=== PATIENT | male | born 2000 | race American Indian/Alaskan Native ===

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

== ENCOUNTER 2018-03-04 20:50 | Emergency (ER) | payer OTHER ==
[2018-03-04 20:50] VITALS: BMI 29.0
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
[2018-03-04 22:24] VITALS: BP 120/82; PULSE 68; RESP 17; TEMP 98.2; O2SAT 100
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
--- NOTE | 2018-03-05 08:48 | RAD ---
PROCEDURE: Cervical Spine Radiographs. HISTORY: Pain. COMPARISON: None. FINDINGS: BONES: Reversal of the anatomic lordosis with kyphosis. Degree: Mild DISC SPACES: Normal. SOFT TISSUES: Normal. No prevertebral soft tissue swelling. OTHER FINDINGS: No visible neuroforaminal abnormalities IMPRESSION: No acute findings related to/accounting for the clinical presentation. Mild kyphosis.
== END 2018-03-04 22:24 | disposition home or self-care (01) ==
LOC: ED 20:50
DX: S13.4XXA Sprain of ligaments of cervical spine, initial encounter (principal); S39.012A Strain of muscle, fascia and tendon of lower back, initial encounter; V49.49XA Driver injured in collision with other motor vehicles in traffic accident, initial encounter; Y92.410 Unspecified street and highway as the place of occurrence of the external cause

== ENCOUNTER 2018-03-22 13:15 | Emergency (ER) | payer OTHER ==
[2018-03-22 13:23] VITALS: BMI 29.7
[2018-03-22 13:28] VITALS: RESP 18
--- NOTE | 2018-03-22 14:10 | ED PDOC ---
Arrival/HPI - General Historian: Patient <Al Martinez - Last Filed: 03/22/18 14:04> - History of Present Illness Time/Duration: 24 hours Activities at Onset: Rest Context: Home <Otis Villalobos - Last Filed: 03/22/18 17:07> - General Chief Complaint: GI Problem Time Seen by Provider: 03/22/18 13:48 - History of Present Illness Narrative History of Present Illness (Text): Patient is a 17 year old male with no significant past medical history who presents to the emergency department for evaluation and treatment of a 1 day history of nausea, vomiting, and diarrhea. Patient believes symptoms were caused by eating at a new restaurant. States he experienced these symptoms several hours after ingesting food from aforementioned restaurant. Admits to experiencing approximately 12 bouts of nonbloody, nonbilious emesis yesterday and several bouts of nonbloody watery diarrhea. All symptoms have resolved since onset. Admits to tolerating diet. Denies recent travel and sick contacts at home. Requests note for work. PMD: Mirela Pike 03/22/18 14:20 (Al Martinez) Past Medical History - Provider Review Nursing Documentation Reviewed: Yes - Travel History Have you recently traveled outside [place] w/in the past 3 mons?: No - Past History Past History: Non-Contributing - Infectious Disease Hx of Infectious Diseases: None - Tetanus Immunization Tetanus Immunization: Unknown - Past Medical History Past Medical History: Non-Contributing - Cardiac Hx Cardiac Disorders: No - Pulmonary Hx Respiratory Disorders: No - Neurological Hx Neurological Disorder: No - HEENT Hx HEENT Disorder: No - Renal Hx Renal Disorder: No - Endocrine/Metabolic Hx Endocrine Disorders: No - Hematological/Oncological Hx Blood Disorders: No - Integumentary Hx Dermatological Disorder: No - Musculoskeletal/Rheumatological Hx Musculoskeletal Disorders: No Other/Comment: L hip sx - Gastrointestinal Hx Gastrointestinal Disorders: No - Genitourinary/Gynecological Hx Genitourinary Disorders: No - Psychiatric Hx Psychophysiologic Disorder: No Hx Substance Use: No - Surgical History Hx Orthopedic Surgery: Yes (hip surgery) Other/Comment: femur epiphysis - Anesthesia Hx Anesthesia: Yes Hx Anesthesia Reactions: No <Al Martinez - Last Filed: 03/22/18 14:04> - Provider Review Nursing Documentation Reviewed: Yes <Otis Villalobos - Last Filed: 03/22/18 17:07> Family/Social History - Physician Review Nursing Documentation Reviewed: Yes Family/Social History: Unknown Family HX Smoking Status: Never Smoked Hx Alcohol Use: No Hx Substance Use: No <Al Martinez - Last Filed: 03/22/18 14:04> - Physician Review Nursing Documentation Reviewed: Yes Hx Substance Use Treatment: No <Otis Villalobos - Last Filed: 03/22/18 17:07> Allergies/Home Meds <Al Martinez - Last Filed: 03/22/18 14:04> <Otis Villalobos - Last Filed: 03/22/18 17:07> Allergies/Adverse Reactions: Allergies No Known Allergies Allergy (Verified 10/30/17 12:44) Home Medications: Home Meds Medication Instructions Recorded Confirmed No Known Home Med 03/22/18 03/22/18 Review of Systems - Physician Review All systems were reviewed & negative as marked: Yes - Review of Systems Constitutional: Normal Eyes: Normal ENT: Normal Respiratory: Normal Cardiovascular: Normal Gastrointestinal: Normal Genitourinary Male: Normal Musculoskeletal: Normal Skin: Normal Neurological: Normal Endocrine: Normal Hemo/Lymphatic: Normal Psychiatric: Normal <Al Martinez Last Filed: 03/22/18 14:04> - Review of Systems Gastrointestinal: Abdominal Pain, Diarrhea, Nausea, Vomiting. absent: Normal <Otis Villalobos Last Filed: 03/22/18 17:07> Physical Exam Temperature: Afebrile Blood Pressure: Normal Pulse: Regular Respiratory Rate: Normal Appearance: Positive for: Well-Appearing Pain Distress: None Mental Status: Positive for: Alert and Oriented X 3 - Systems Exam Head: Present: Atraumatic, Normocephalic Pupils: Present: PERRL Extroacular Muscles: Present: EOMI Conjunctiva: Present: Normal Mouth: Present: Moist Mucous Membranes Respiratory/Chest: Present: Clear to Auscultation, Good Air Exchange. No: Respiratory Distress, Accessory Muscle Use Cardiovascular: Present: Regular Rate and Rhythm, Normal S1, S2. No: Murmurs Abdomen: Present: Normal Bowel Sounds. No: Tenderness, Distention, Peritoneal Signs, Rebound, Guarding, McBurney's Point Tender Upper Extremity: Present: Normal Inspection Lower Extremity: Present: Normal Inspection Neurological: Present: GCS=15, CN II-XII Intact, Speech Normal, Motor Func Grossly Intact, Normal Sensory Function Skin: Present: Warm, Dry, Normal Color Psychiatric: Present: Alert, Oriented x 3, Normal Insight, Normal Concentration <Al Martinez - Last Filed: 03/22/18 14:04> <Otis Villalobos - Last Filed: 03/22/18 17:07> Vital Signs Temp Pulse Resp BP Pulse Ox 03/22/18 14:40 98.0 F 65 18 111/58 L 99 03/22/18 14:10 98.0 F 65 18 111/58 L 97 03/22/18 13:26 98.5 F 62 18 109/47 L 97 Medical Decision Making <Al Martinez - Last Filed: 03/22/18 14:04> Re-evaluation Time: 14:15 Reassessment Condition: Improved <Otis Villalobos - Last Filed: 03/22/18 17:07> ED Course and Treatment: Assessment and Plan: Patient is a 17 year old male with no significant past medical history who presents to the emergency department for evaluation and treatment of a 1 day history of nausea, vomiting, and diarrhea. Nausea, Vomiting- resolved, provoking event possibly food related Diarrhea- resolved, provoking event possibly food related - symptoms have resolved - 12 point ROS negative - physical examination benign 03/22/18 14:13 (Al Martinez) Patient Seen With Resident: In agreement with resident note which contains more details about the patient. Patient was seen and evaluated with resident. Came up with plan and treatment together. I performed the hx and physical exam of the patient and discussed their mgt with the RESIDENT. I reviewed the RESIDENT's NOTE and agree with the assessment and plan of care. pt is well appearing pt is comfortable pt denied nausea/vomiting pt is made aware of his medical results pt is encouraged [place] diet and continue hydration pt will f/u as directed pt will be discharged home (Otis Villalobos) Disposition/Present on Arrival - Present on Arrival Any Indicators Present on Arrival: No History of DVT/PE: No History of Uncontrolled Diabetes: No Urinary Catheter: No History of Decub. Ulcer: No History Surgical Site Infection Following: None - Disposition Have Diagnosis and Disposition been Completed?: Yes Disposition Time: 14:17 Patient Plan: Discharge <Al Martinez - Last Filed: 03/22/18 14:04> <Otis Villalobos - Last Filed: 03/22/18 17:07> - Disposition Diagnosis: Nausea & vomiting, Diarrhea Disposition: HOME/ ROUTINE Condition: GOOD Discharge Instructions (ExitCare): Diarrhea in Adolescents and Adults, Viral Gastroenteritis Print Language: OMANI Additional Instructions: Raleigh Suarez, thank you for letting us take care of you today. Your provider was Dr. Villalobos. You were treated for nausea/vomiting/diarrhea. The emergency medical care you received today was directed at your acute symptoms. If you were prescribed any medication, please fill it and take as directed. It may take several days for your symptoms to resolve. Return to the Emergency Department if your symptoms worsen, do not improve, or if you have any other problems. Please contact your doctor or call one of the physicians/clinics you have been referred to that are listed on the Patient Visit Information form that is included in your discharge packet. Bring any paperwork you were given at discharge with you along with any medications you are taking to your follow up visit. Our treatment cannot replace ongoing medical care by a primary care provider (PCP) outside of the emergency department. Thank you for allowing the [facility] team to be part of your care today. You are stable for discharge from emergency room to home. Please follow up with your primary care physician. Referrals: Mirela Troy MD [Primary Care Provider] - Follow up with primary Forms: [employer] (Maori)
[2018-03-22 14:29] VITALS: BP 111/58; PULSE 65; TEMP 98
[2018-03-22 14:52] VITALS: O2SAT 99
== END 2018-03-22 14:40 | disposition home or self-care (01) ==
LOC: ED 13:15
DX: R11.2 Nausea with vomiting, unspecified (principal); R19.7 Diarrhea, unspecified

== ENCOUNTER 2018-05-03 17:22 | Emergency (ER) | payer MEDICAID, OTHER ==
[2018-05-03 17:22] VITALS: BMI 29.7
[2018-05-03 17:31] VITALS: BP 131/72; PULSE 74; RESP 18; TEMP 98.6; O2SAT 98
--- NOTE | 2018-05-03 17:50 | ED PDOC ---
Arrival/HPI - General Chief Complaint: Male Genitourinary Time Seen by Provider: 05/03/18 17:46 Historian: Patient - History of Present Illness Narrative History of Present Illness (Text): 05/03/18 17:47 Patient is a 17 year old male who presents to the Emergency department complaining of a painful sore on his penis. Patient reports that he first noticed the sore 2 days ago. He also admits to noticing a cut at that time, but doesn't know the cause of it. He reports that he recently changed his condom to a magnum condom. Patient denies any discharge or bumps. Patient denies any systemic complaints such as fever, malaise, or headache. PMD: Dr.Mona Troy Time/Duration: < week (2 days ago) Symptom Onset: Sudden Symptom Course: Unchanged Context: Home Past Medical History - Provider Review Nursing Documentation Reviewed: Yes - Past History Past History: Non-Contributing - Infectious Disease Hx of Infectious Diseases: None - Tetanus Immunization Tetanus Immunization: Unknown - Past Medical History Past Medical History: Non-Contributing - Cardiac Hx Cardiac Disorders: No - Pulmonary Hx Respiratory Disorders: No - Neurological Hx Neurological Disorder: No - HEENT Hx HEENT Disorder: No - Renal Hx Renal Disorder: No - Endocrine/Metabolic Hx Endocrine Disorders: No - Hematological/Oncological Hx Blood Disorders: No - Integumentary Hx Dermatological Disorder: No - Musculoskeletal/Rheumatological Hx Musculoskeletal Disorders: No Other/Comment: L hip sx - Gastrointestinal Hx Gastrointestinal Disorders: No - Genitourinary/Gynecological Hx Genitourinary Disorders: No - Psychiatric Hx Psychophysiologic Disorder: No Hx Substance Use: No - Surgical History Hx Orthopedic Surgery: Yes (hip surgery) Other/Comment: femur epiphysis - Anesthesia Hx Anesthesia: Yes Hx Anesthesia Reactions: No Family/Social History - Physician Review Nursing Documentation Reviewed: Yes Family/Social History: No Known Family HX Smoking Status: Never Smoked Hx Alcohol Use: No Hx Substance Use: No Hx Substance Use Treatment: No Allergies/Home Meds Allergies/Adverse Reactions: Allergies No Known Allergies Allergy (Verified 10/30/17 12:44) Review of Systems - Physician Review All systems were reviewed & negative as marked: Yes - Review of Systems Constitutional: absent: Fatigue, Fevers Neurological: absent: Headache Physical Exam - Physical Exam Narrative Physical Exam (Text): 05/03/18 17:59 Gen: VS reviewed, alert, well developed, well nourished, nontoxic, mild distress. ENT: normal pharynx. Eye: EOMI, PERRL. Neck: no JVD, supple, no adenopathy. CV: regular rate, regular rhythm, no rubs, no murmur, no gallops, S1, S2, pulses equal and strong. Pulm: no distress, clear to auscultation, no wheeze, no rhonchi, breath sounds equal, no rales. Abd: soft, nontender, no guarding, no rebound, no rigidity, normal bowel sounds. Genitourinary Male: A combination of healed flat lesions and small surrounding vesicular lesions on the lateral aspect of the base of his penile shaft. No penile discharge. No tender regional adenopathy. Ext: no edema. Skin: good color, no rash, no cyanosis. Psych: responds appropriately to questions, normal affect. Neuro: oriented x 3, CN2-12 intact grossly, motor intact, sensation intact. Vital Signs Reviewed: Yes Vital Signs Temp Pulse Resp BP Pulse Ox 05/03/18 17:25 98.6 F 74 18 131/72 98 Temperature: Afebrile Blood Pressure: Normal Pulse: Regular Respiratory Rate: Normal Appearance: Positive for: Well-Appearing Pain Distress: Mild Mental Status: Positive for: Alert and Oriented X 3 Medical Decision Making ED Course and Treatment: 05/03/18 17:59 Impression: Patient is a 17 year old male who presents to the Emergency department complaining of a painful penile sore. Differential Diagnosis included but are not limited to: Genital herpes. Plan: -- Discussed with patient that his symptoms are consistent with genital herpes. Prior Visits: Notes and results from previous visits were reviewed. Progress Notes: 05/03/18 18:11 Patient was seen for penile lesions clinically consistent with genital herpes. Will treat empirically and refer to PMD for comprehensive STD testing. Patient given the opportunity to ask question, all questions were answered and there is agreement with the plan to discharge the patient home and to follow up with his PMD. Patient is stable for discharge. - Scribe Statement The provider has reviewed the documentation as recorded by the Kasey Rodriguez Provider Scribe Attestation: All medical record entries made by the Nataliaibcecelia were at my direction and personally dictated by me. I have reviewed the chart and agree that the record accurately reflects my personal performance of the history, physical exam, medical decision making, and the department course for this patient. I have also personally directed, reviewed, and agree with the discharge instructions and disposition. Disposition/Present on Arrival - Present on Arrival Any Indicators Present on Arrival: No History of DVT/PE: No History of Uncontrolled Diabetes: No Urinary Catheter: No History of Decub. Ulcer: No History Surgical Site Infection Following: None - Disposition Have Diagnosis and Disposition been Completed?: Yes Diagnosis: Genital herpes, unspecified Disposition: HOME/ ROUTINE Disposition Time: 18:07 Patient Plan: Discharge Condition: GOOD Discharge Instructions (ExitCare): Genital Herpes Print Language: GREEK Additional Instructions: FOLLOW UP WITH A PRIMARY ARE DOCTOR FOR COMPREHENSIVE TESTING FOR SEXUALLY TRANSMITTED DISEASES. [employer], thank you for letting us take care of you today. Your provider was Grant Braswell MD and you were treated for SORE PENIS. The emergency medical care you received today was directed at your acute symptoms. If you were prescribed any medication, please fill it and take as directed. It may take several days for your symptoms to resolve. Return to the Emergency Department if your symptoms worsen, do not improve, or if you have any other problems. Please contact your doctor or call one of the physicians/clinics you have been referred to that are listed on the Patient Visit Information form that is included in your discharge packet. Bring any paperwork you were given at discharge with you along with any medications you are taking to your follow up visit. Our treatment cannot replace ongoing medical care by a primary care provider outside of the emergency department. Thank you for allowing the [facility] team to be part of your care today. If you had an X-Ray or CT scan: A Radiologist will review the ED reading if any change in treatment is needed we will contact you. If you had a blood, urine, or wound culture: It will take several days for the results, if any change in treatment is needed we will contact you. If you had an STI test: It will take 48 hours for the results. Please call after 1 week if you have not heard back. Prescriptions: Acyclovir [Zovirax] 400 mg PO TID 7 Days capsule Referrals: Leida Balbuena MD [Staff Provider] - Follow up with primary Forms: [employer] ([place])
== END 2018-05-03 18:15 | disposition home or self-care (01) ==
LOC: ED 17:22
DX: A60.00 Herpesviral infection of urogenital system, unspecified (principal)